=== PATIENT | male | born 1990 | race Two or more races ===

== ENCOUNTER 2020-12-25 11:17 | Emergency (ER) | payer OTHER ==
[2020-12-25] MEDS ORDERED: Diphtheria,Pertussis(Acell),Tetanus Vaccine 0.5 ML Syringe IM ONE (11:52)
--- NOTE | 2020-12-25 11:58 | CR ---
[id number] RAD/RAD Fingers Right EXAM: RAD Fingers Right INDICATION: PINCHED IN MACHINERY. COMPARISON: None. DISCUSSION: Soft tissue defect involving the distal aspect of the third digit. No radiopaque foreign body or associated osseous abnormality. No dislocation. IMPRESSION: 1. Soft tissue defect third digit tip. No acute osseous abnormality. Michael Schneider MD 12/25/20 1156 Thank you for allowing us to participate in the care of your patient.
[2020-12-25] MEDS ORDERED: Acetaminophen 500 MG Tab PO ONE (12:26)
[2020-12-25] MEDS ORDERED: Ibuprofen 600 MG Tab PO ONE (12:26)
--- NOTE | 2020-12-25 12:33 | EDM.PDOC ---
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 He denies any other injuries. Tetanus update is needed and given. Right Middle Finger-Middle Pain Score (Numeric/FACES): 8 - Related Data Allergies Allergy/AdvReac Type Severity Reaction Status Date / Time No Known Drug Allergies Allergy Cannot Verified 12/25/20 11:32 Remember Home Meds: Home Meds . [No Known Home Meds] 12/25/20 [History] Past Medical History - Past Health History Medical/Surgical History: Denies Medical/Surgical History HEENT History: Reports: None Cardiovascular History: Reports: None Respiratory History: Reports: None Gastrointestinal History: Reports: None Genitourinary History: Reports: None Musculoskeletal History: Reports: None Neurological History: Reports: None Psychiatric History: Reports: None Endocrine/Metabolic History: Reports: None Hematologic History: Reports: None Immunologic History: Reports: None Oncologic (Cancer) History: Reports: None Dermatologic History: Reports: None - Past Surgical History Head Surgeries/Procedures: Reports: None Male Surgical History: Reports: None Social & Family History - Family History Family Medical History: No Pertinent Family History - Tobacco Use Tobacco Use Status *Q: Current Every Day Tobacco User Years of Tobacco use: 10 Packs/Tins Daily: 0.5 - Caffeine Use Caffeine Use: Reports: Coffee, Soda - Recreational Drug Use Recreational Drug Use: No ED ROS GENERAL - Review of Systems Review Of Systems: See Below Constitutional: Denies: Fever, Chills, Malaise, Weakness HEENT: Reports: No Symptoms Respiratory: Reports: No Symptoms Cardiovascular: Reports: No Symptoms Endocrine: Reports: No Symptoms GI/Abdominal: Reports: No Symptoms : Reports: No Symptoms Musculoskeletal: Reports: Hand Pain. Denies: Neck Pain, Shoulder Pain, Arm Pain, Back Pain, Leg Pain, Foot Pain Skin: Reports: No Symptoms Neurological: Reports: No Symptoms Psychiatric: Reports: No Symptoms ED EXAM, SKIN/RASH Exam: See Below Exam Limited By: No Limitations General Appearance: Alert, WD/WN, No Apparent Distress Eye Exam: Bilateral Eye: EOMI, Normal Inspection, PERRL Ears: Normal External Exam, Hearing Grossly Normal Nose: Normal Inspection, No Blood Throat/Mouth: Normal Inspection, Normal Voice, No Airway Compromise Head: Atraumatic, Normocephalic Neck: Normal Inspection, Full Range of Motion Respiratory/Chest: No Respiratory Distress, Lungs Clear, Normal Breath Sounds, No Accessory Muscle Use Cardiovascular: Regular Rate, Rhythm, No Murmur GI/Abdominal: No Distention Back Exam: Normal Inspection, Full Range of Motion Extremities: Normal Range of Motion, Normal Capillary Refill, Other (Right long finger tip is partially avulsed with nail still attached and present. There is a small area of exposed bone at distal phalanx. There is moderate but significant loss of soft tissue distal/volar and loss of dermis circumferenti ally nearly to the DIP joint. No other deformity. ) Neurological: Alert, Oriented, Normal Cognition, No Motor/Sensory Deficits Psychiatric: Normal Affect, Normal Mood Skin: Warm, Dry, Normal Color, No Rash Course - Vital Signs Last Recorded V/S: Last Vital Signs Temp 96.9 F 12/25/20 11:21 Pulse 107 H 12/25/20 11:21 Resp 22 H 12/25/20 11:21 BP 130/83 12/25/20 11:21 Pulse Ox 98 12/25/20 11:21 - Orders/Labs/Meds Orders: Active Orders 24 hr Category Date Time Status Vaccines to be Administered [RC] PER UNIT ROUTINE Care 12/25/20 11:53 Active Meds: Medications Discontinued Medications Generic Name Dose Route Start Last Admin Trade Name Jack PRN Reason Stop Dose Admin Diphtheria/Tetanus/Acell Pertussis 0.5 ml 12/25/20 11:52 12/25/20 12:01 Diphtheria,Pertussis(Acell),Tetanus Vaccine 0.5 Ml Syringe IM 12/25/20 11:53 0.5 ml .ONCE ONE Administration - Re-Assessments/Exams Free Text/Narrative Re-Assessment/Exam: 12/25/20 12:36 Xrays show no evidence of fracture, but do show that distal phalanx bone is slightly exposed, which is confirmed clinically. Xrays and photos of finger were sent to Dr. Zapien, hand surgeon at [facility]. He thinks there is a good chance this will granulate in and keep the full finger length. If it doesn't, it can be amputated later. Option 2 is amputation today with a quicker return to work without restrictions. 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 He would like to see if it will heal without amputation which I feel is the best decision at this point also. We discussed the details of what he needs to do to take care of it and minimize risks of infection developing, including: daily soap water soaks, zeroform dressing changes daily, keeping clean and dry at all other times, avoiding use at work until cleared by surgeon, taking antibiotic. He understands and agrees. 12/25/20 12:54 The finger is soaked for 40 minutes in Hibiclens solution then dressed with zeroform, tube gauze and alumafoam splint. Sling applied and fitted. TDAP is given. Ibuprofen 600 and Tylenol 1000 given po. Patient tolerated this well. Departure - Departure Time of Disposition: 12:23 Disposition: Home, Self-Care 01 Condition: Good Clinical Impression: Crushed finger, distal Qualifiers: Encounter type: initial encounter Qualified Code(s): S67.10XA - Crushing injury of unspecified finger(s), initial encounter Avulsion, finger tip Qualifiers: Encounter type: initial encounter Qualified Code(s): S61.209A - Unspecified open wound of unspecified finger without damage to nail, initial encounter - Discharge Information Referrals: Heaven Bell MD [Primary Care Provider] - Additional Instructions: Keep wound clean and dry except for soaking and washing. You should soak it 10-15 minutes daily in warm soapy water, then redress with fresh, clean bandages. Call today to set up an appointment with Dr. Zapien next week at [facility] in [place]. Phone number: [phone] Take the antibiotic (Cephalexin 500 mg) three times a day for 10 days. You can use Ibuprofen 600 mg and Tylenol 500-1000 mg, each three times a day for pain control as needed. Don't use your right hand at work until Dr. Zapien says it's okay. Use the sling to keep hand elevated as well as a reminder to protect it. Sepsis Event Note (ED) - Evaluation Sepsis Screening Result: No Definite Risk - Focused Exam Vital Signs: Vital Signs Temp Pulse Resp BP Pulse Ox 12/25/20 11:21 96.9 F 107 H 22 H 130/83 98 - My Orders Last 24 Hours: My Active Orders 12/25/20 11:53 Vaccines to be Administered [RC] PER UNIT ROUTINE - Assessment/Plan Last 24 Hours: My Active Orders 12/25/20 11:53 Vaccines to be Administered [RC] PER UNIT ROUTINE
== END 2020-12-25 12:50 | disposition home or self-care (01) ==
LOC: KA.ED 11:17
DX: S67.192A Crushing injury of right middle finger, initial encounter (principal); S61.202A Unspecified open wound of right middle finger without damage to nail, initial encounter; Z72.0 Tobacco use; Z23 Encounter for immunization; W26.8XXA Contact with other sharp object(s), not elsewhere classified, initial encounter; Y92.89 Other specified places as the place of occurrence of the external cause; Y99.0 Civilian activity done for income or pay
CPT/HCPCS: 73140-F7; 90471; 90715; 99283; A9270-GY

== ENCOUNTER 2024-07-03 19:52 | Emergency (ER) | payer OTHER | END 2024-07-03 21:00 | disposition home or self-care (01) | LOC: KA.ED 19:52 | DX: S93.601A Unspecified sprain of right foot, initial encounter (principal); S90.31XA Contusion of right foot, initial encounter; Z02.9 Encounter for administrative examinations, unspecified; W30.89XA Contact with other specified agricultural machinery, initial encounter; Y99.0 Civilian activity done for income or pay | CPT/HCPCS: 73630-RT; 99283 ==